=== PATIENT | female | born 1960 | race Caucasian/White ===

== ENCOUNTER 2017-03-29 12:46 | Inpatient (IN) ==
[2017-03-29] MEDS ORDERED: ONDANSETRON 4 MG/2 ML VIAL IV PRN (13:13)
[2017-03-29] MEDS ORDERED: traMADol 50 MG TABLET PO PRN (13:13)
[2017-03-29] MEDS ORDERED: ACETAMINOPHEN 325 MG TABLET PO PRN (13:13)
[2017-03-29] MEDS ORDERED: hydrALAZINE 20 MG/1 ML VIAL IV STA (13:17)
[2017-03-29] MEDS ORDERED: hydrALAZINE 20 MG/1 ML VIAL IV PRN (13:19)
[2017-03-29 14:40] LABS: Basophils % 0.2 % (0.0-0.8); Hemoglobin 13.5 GM/DL (12.0-16.0); Immature Granulocytes % 0.9 %; Immature Granulocytes Absolute 0.08 #; Lymphocytes # 0.6 10*3/uL (1.4-4.0); Lymphocytes % 6.8 % (21.3-54.2); Mean Corpuscular HGB Conc 32.1 GM/DL (32-36); Mean Corpuscular Hemoglobin 30 PG (27-34); Mean Corpuscular Volume 92.7 FL (87-102); Mean Platelet Volume 10.9 FL (9.6-12.0); Monocytes # 0.6 10*3/uL (0.11-0.8); Monocytes % 6.1 % (1.7-12.7); Neutrophils # 7.9 10*3/uL (1.4-7.4); Platelet Count 300 T/CUMM (130-400); Red Blood Count 4.53 MC/CUMM (3.8-5.5); Red Cell Distribution Width 13.5 % (9.3-17.3); White Blood Count 9.2 T/CUMM (4-12)
[2017-03-29 15:01] LABS: Bilirubin,Direct 0.2 MG/DL (0.0-0.20); Bilirubin,Total 1.4 MG/DL (0.2-1.0); Calcium 11.5 MG/DL (8.5-10.1)
[2017-03-29 15:02] LABS: Albumin 2.9 G/DL (3.4-5.0); Bilirubin,Indirect 1.2 MG/DL (0.0-1.0); Magnesium 2.1 MG/DL (1.8-2.4); Osmolality,Calculated 272.1 MOS/KG (273-304); Potassium 4.5 MMOL/L (3.5-5.1); Total Protein 6.9 G/DL (6.4-8.3)
[2017-03-29] MEDS: DEXTROSE 5% NACL 0.45% 1,000 ML IV SCH (16:01)
[2017-03-29] MEDS: LINEZOLID INJ 600 MG in PREMIX 1 EACH IV SCH (16:01)
[2017-03-29] MEDS ORDERED: ceFAZolin 1,000 MG in SYRINGE 1 EACH IV ONE (16:58)
[2017-03-29 18:42] LABS: Apearance,Urine CLEAR (Clear); Bilirubin,Urine Negative (Negative); Blood, Urine Negative (Negative); Glucose,Urine (UA) Negative (Negative); Ketones,Urine 20 mg/dL (Negative); Mucus,Urine Occasional /LPF (Occasional); Nitrite,Urine Negative (Negative); Protein,Urine Negative; RBC,Urine <1 /HPF (0-4); Squamous Epithelial Cell,Urine Occasional /HPF (0-10); Urine Color Yellow (Yellow); Urine Specific Gravity 1.016 (1.001-1.035); Urine Urobilinogen < 2.0 EU/DL (0.2-1.0); WBC,Urine <1 /HPF (0-6)
[2017-03-29 18:48] LABS: PT Patient Result 10.4 SECS
[2017-03-29] MEDS: METOPROLOL TARTRATE 25 MG TABLET PO SCH (20:44)
[2017-03-29] MEDS: DOCUSATE SODIUM 100 MG CAPSULE PO SCH (20:47)
[2017-03-30] MEDS: LINEZOLID INJ 600 MG in PREMIX 1 EACH IV SCH ×2 (02:56→16:09)
[2017-03-30] MEDS: ALPRAZolam 0.5 MG TABLET PO PRN ×2 (03:04→14:48)
[2017-03-30] MEDS ORDERED: ceFAZolin 1,000 MG in SYRINGE 1 EACH IV ONE (06:00)
[2017-03-30] MEDS: DEXTROSE 5% NACL 0.45% 1,000 ML IV SCH ×2 (07:59→16:09)
[2017-03-30] MEDS: METOPROLOL TARTRATE 25 MG TABLET PO SCH ×2 (09:34→21:43)
[2017-03-30] MEDS: PANTOPRAZOLE 40 MG TABLET PO SCH (09:37)
[2017-03-30] MEDS: DOCUSATE SODIUM 100 MG CAPSULE PO SCH ×3 (09:37→21:46)
[2017-03-30] MEDS ORDERED: ZOLEDRONIC ACID 4 MG in PREMIX 1 EACH IV ONE (10:00)
[2017-03-30] MEDS ORDERED: LIDOCAINE 2%/EPI 20 ML VIAL ONE (11:32)
[2017-03-30] MEDS ORDERED: ISOSULFAN BLUE 5 ML VIAL SUBCUT ONE (11:32)
[2017-03-30] MEDS ORDERED: BUPIVACAINE 0.25% 50 ML VIAL ONE (11:32)
[2017-03-30] MEDS ORDERED: BACITRACIN OINT 0.9 GM PACK TOP ONE (12:05)
[2017-03-30] MEDS ORDERED: CHLORHEXIDINE 4% SOLN 118 ML BOTTLE TOP ONE (12:26)
[2017-03-30] MEDS ORDERED: MORPHINE 10 MG/1 ML VIAL ONE (12:37)
[2017-03-30] MEDS ORDERED: ONDANSETRON 4 MG/2 ML VIAL ONE (12:38)
[2017-03-30] MEDS ORDERED: MORPHINE 2 MG/1 ML SYRINGE IV ONE ×2 (12:41→14:30)
[2017-03-30] MEDS ORDERED: MIDAZOLAM 2 MG/2 ML VIAL ONE (12:42)
[2017-03-30] MEDS ORDERED: KETAMINE 500 MG/10 ML VIAL ONE (12:42)
[2017-03-30] MEDS ORDERED: ONDANSETRON 4 MG/2 ML VIAL IV PRN (12:42)
[2017-03-30 16:20] LABS: Lymphocytes,Pleural Fluid 91 %; Monocytes,Pleural Fluid 8 %; Neutrophils,Pleural Fluid 1 %; RBC,Pleural Fluid 664 T/CUMM
[2017-03-30] MEDS: ceFAZolin 2,000 MG in PREMIX 1 EACH IV SCH (18:31)
[2017-03-30] MEDS: MORPHINE 2 MG/1 ML SYRINGE IV PRN (18:36)
[2017-03-31] MEDS: DEXTROSE 5% NACL 0.45% 1,000 ML IV SCH ×2 (00:29→20:37)
[2017-03-31] MEDS: MORPHINE 2 MG/1 ML SYRINGE IV PRN ×2 (01:26→09:46)
[2017-03-31 03:11] LABS: Basophils % 0.3 % (0.0-0.8); Eosinophils # 0.1 10*3/uL (0.0-0.87); Eosinophils % 0.8 % (0.00-10.9); Hemoglobin 11.6 GM/DL (12.0-16.0); Immature Granulocytes % 1.1 %; Immature Granulocytes Absolute 0.08 #; Lymphocytes # 0.7 10*3/uL (1.4-4.0); Lymphocytes % 10.1 % (21.3-54.2); Mean Corpuscular HGB Conc 31.4 GM/DL (32-36); Mean Corpuscular Hemoglobin 30 PG (27-34); Mean Corpuscular Volume 94.6 FL (87-102); Mean Platelet Volume 11.2 FL (9.6-12.0); Monocytes # 0.8 10*3/uL (0.11-0.8); Monocytes % 10.6 % (1.7-12.7); Neutrophils # 5.6 10*3/uL (1.4-7.4); Neutrophils % 77.1 % (38.7-73.9); Platelet Count 219 T/CUMM (130-400); Red Blood Count 3.91 MC/CUMM (3.8-5.5); Red Cell Distribution Width 13.5 % (9.3-17.3); White Blood Count 7.2 T/CUMM (4-12)
[2017-03-31] MEDS: ceFAZolin 2,000 MG in PREMIX 1 EACH IV SCH (03:11)
[2017-03-31 03:43] LABS: Albumin 2.2 G/DL (3.4-5.0); Osmolality,Calculated 273.8 MOS/KG (273-304); Potassium 4.1 MMOL/L (3.5-5.1); Total Protein 5.2 G/DL (6.4-8.3)
[2017-03-31] MEDS: LINEZOLID INJ 600 MG in PREMIX 1 EACH IV SCH ×2 (04:08→15:05)
[2017-03-31] MEDS: DOCUSATE SODIUM 100 MG CAPSULE PO SCH ×2 (09:45→22:00)
[2017-03-31] MEDS: METOPROLOL TARTRATE 25 MG TABLET PO SCH ×2 (09:45→22:00)
[2017-03-31] MEDS: PANTOPRAZOLE 40 MG TABLET PO SCH (09:46)
[2017-03-31] MEDS: BACITRACIN OINT 0.9 GM PACK TOP SCH (09:46)
[2017-03-31] MEDS ORDERED: LORazepam 2 MG/1 ML VIAL IV ONE (10:46)
[2017-03-31] MEDS: HYDROmorphone 2 MG/1 ML VIAL IV PRN ×2 (12:36→18:34)
[2017-03-31] MEDS: ENOXAPARIN 100 MG/ML SYRINGE SUBCUT SCH (12:49)
[2017-03-31] MEDS: MEROPENEM 1,000 MG in SYRINGE 1 EACH IV SCH ×2 (14:55→22:51)
[2017-04-01] MEDS: DEXTROSE 5% NACL 0.45% 1,000 ML IV SCH ×2 (01:31→15:03)
[2017-04-01] MEDS: LINEZOLID INJ 600 MG in PREMIX 1 EACH IV SCH ×2 (02:12→14:58)
[2017-04-01 06:22] LABS: Basophils % 0.3 % (0.0-0.8); Eosinophils % 0.6 % (0.00-10.9); Hematocrit 36.3 VOL% (35.7-47.0); Hemoglobin 11.5 GM/DL (12.0-16.0); Immature Granulocytes Absolute 0.06 #; Lymphocytes # 0.7 10*3/uL (1.4-4.0); Lymphocytes % 11.6 % (21.3-54.2); Mean Corpuscular HGB Conc 31.7 GM/DL (32-36); Mean Corpuscular Hemoglobin 30 PG (27-34); Mean Corpuscular Volume 93.1 FL (87-102); Mean Platelet Volume 11.2 FL (9.6-12.0); Monocytes # 0.6 10*3/uL (0.11-0.8); Monocytes % 10.3 % (1.7-12.7); Neutrophils # 4.7 10*3/uL (1.4-7.4); Neutrophils % 76.2 % (38.7-73.9); Platelet Count 172 T/CUMM (130-400); Red Cell Distribution Width 13.5 % (9.3-17.3); White Blood Count 6.2 T/CUMM (4-12)
[2017-04-01] MEDS: MEROPENEM 1,000 MG in SYRINGE 1 EACH IV SCH ×3 (06:33→22:54)
[2017-04-01 06:39] LABS: Calcium 8.5 MG/DL (8.5-10.1); Osmolality,Calculated 265.4 MOS/KG (273-304); Potassium 3.6 MMOL/L (3.5-5.1)
[2017-04-01] MEDS: HYDROmorphone 2 MG/1 ML VIAL IV PRN ×3 (07:04→22:00)
[2017-04-01] MEDS: METOPROLOL TARTRATE 25 MG TABLET PO SCH ×2 (09:41→21:52)
[2017-04-01] MEDS: BACITRACIN OINT 0.9 GM PACK TOP SCH (09:41)
[2017-04-01] MEDS: DOCUSATE SODIUM 100 MG CAPSULE PO SCH ×2 (09:42→22:11)
[2017-04-01] MEDS: PANTOPRAZOLE 40 MG TABLET PO SCH (09:42)
[2017-04-01] MEDS: ENOXAPARIN 100 MG/ML SYRINGE SUBCUT SCH (09:42)
[2017-04-02] MEDS: LINEZOLID INJ 600 MG in PREMIX 1 EACH IV SCH ×2 (03:13→14:10)
[2017-04-02 06:07] LABS: Basophils % 0.4 % (0.0-0.8); Eosinophils # 0.1 10*3/uL (0.0-0.87); Hematocrit 35.3 VOL% (35.7-47.0); Hemoglobin 11.2 GM/DL (12.0-16.0); Immature Granulocytes % 1.1 %; Immature Granulocytes Absolute 0.06 #; Lymphocytes % 17.9 % (21.3-54.2); Mean Corpuscular HGB Conc 31.7 GM/DL (32-36); Mean Corpuscular Hemoglobin 30 PG (27-34); Mean Corpuscular Volume 93.1 FL (87-102); Mean Platelet Volume 10.9 FL (9.6-12.0); Monocytes # 0.7 10*3/uL (0.11-0.8); Monocytes % 12.6 % (1.7-12.7); Neutrophils # 3.7 10*3/uL (1.4-7.4); Platelet Count 168 T/CUMM (130-400); Red Blood Count 3.79 MC/CUMM (3.8-5.5); Red Cell Distribution Width 13.3 % (9.3-17.3); White Blood Count 5.6 T/CUMM (4-12)
[2017-04-02] MEDS: MEROPENEM 1,000 MG in SYRINGE 1 EACH IV SCH ×3 (06:28→22:36)
[2017-04-02 06:32] LABS: Calcium 7.9 MG/DL (8.5-10.1); Magnesium 2.2 MG/DL (1.8-2.4); Potassium 3.6 MMOL/L (3.5-5.1)
[2017-04-02] MEDS ORDERED: diphenhydrAMINE 50 MG/1 ML VIAL IV ONE (08:30)
[2017-04-02] MEDS ORDERED: GRANISETRON 1 MG/1 ML VIAL IV SCH (08:30)
[2017-04-02] MEDS ORDERED: FAMOTIDINE 20 MG/2 ML VIAL IV ONE (08:30)
[2017-04-02] MEDS ORDERED: DEXAMETHASONE INJ 20 MG in SODIUM CHLORIDE 0.9% 50 ML IV ONE (08:30)
[2017-04-02] MEDS: PANTOPRAZOLE 40 MG TABLET PO SCH (09:25)
[2017-04-02] MEDS: DOCUSATE SODIUM 100 MG CAPSULE PO SCH ×3 (09:25→20:54)
[2017-04-02] MEDS: HYDROmorphone 2 MG/1 ML VIAL IV PRN ×3 (09:25→22:34)
[2017-04-02] MEDS: METOPROLOL TARTRATE 25 MG TABLET PO SCH ×2 (09:25→20:53)
[2017-04-02] MEDS: ENOXAPARIN 100 MG/ML SYRINGE SUBCUT SCH (09:27)
[2017-04-02] MEDS: DEXTROSE 5% NACL 0.45% 1,000 ML IV SCH ×2 (10:19→12:02)
[2017-04-02] MEDS ORDERED: LIDOCAINE 2% 20 ML VIAL MISC INJ ONE (10:43)
[2017-04-02] MEDS ORDERED: DOXYCYCLINE HYCLATE 100 MG CAPSULE PO SCH (11:00)
[2017-04-02] MEDS: BACITRACIN OINT 0.9 GM PACK TOP SCH (11:37)
[2017-04-03] MEDS: LINEZOLID INJ 600 MG in PREMIX 1 EACH IV SCH ×2 (03:08→16:59)
[2017-04-03] MEDS: DEXTROSE 5% NACL 0.45% 1,000 ML IV SCH ×2 (03:08→09:15)
[2017-04-03] MEDS: HYDROmorphone 2 MG/1 ML VIAL IV PRN ×3 (04:34→21:46)
[2017-04-03 06:21] LABS: Hematocrit 34.7 VOL% (35.7-47.0); Hemoglobin 11.3 GM/DL (12.0-16.0); Immature Granulocytes % 0.7 %; Immature Granulocytes Absolute 0.04 #; Lymphocytes # 0.7 10*3/uL (1.4-4.0); Lymphocytes % 11.9 % (21.3-54.2); Mean Corpuscular HGB Conc 32.6 GM/DL (32-36); Mean Corpuscular Hemoglobin 30 PG (27-34); Mean Corpuscular Volume 91.1 FL (87-102); Mean Platelet Volume 11.4 FL (9.6-12.0); Monocytes # 0.4 10*3/uL (0.11-0.8); Monocytes % 6.2 % (1.7-12.7); Neutrophils # 4.8 10*3/uL (1.4-7.4); Neutrophils % 81.2 % (38.7-73.9); Platelet Count 176 T/CUMM (130-400); Red Blood Count 3.81 MC/CUMM (3.8-5.5); Red Cell Distribution Width 13.4 % (9.3-17.3)
[2017-04-03] MEDS: MEROPENEM 1,000 MG in SYRINGE 1 EACH IV SCH ×3 (06:45→23:45)
[2017-04-03 06:56] LABS: Calcium 7.5 MG/DL (8.5-10.1); Magnesium 2.4 MG/DL (1.8-2.4); Osmolality,Calculated 275.7 MOS/KG (273-304); Potassium 3.7 MMOL/L (3.5-5.1)
[2017-04-03] MEDS ORDERED: MEPERIDINE 25 MG/1 ML VIAL IV ONE (09:18)
[2017-04-03] MEDS ORDERED: MEPERIDINE 50 MG/1 ML VIAL ONE (09:21)
[2017-04-03] MEDS: DOCUSATE SODIUM 100 MG CAPSULE PO SCH ×2 (10:22→21:14)
[2017-04-03] MEDS: ENOXAPARIN 100 MG/ML SYRINGE SUBCUT SCH (10:23)
[2017-04-03] MEDS: PANTOPRAZOLE 40 MG TABLET PO SCH (10:23)
[2017-04-03] MEDS: BACITRACIN OINT 0.9 GM PACK TOP SCH (10:23)
[2017-04-03] MEDS: METOPROLOL TARTRATE 25 MG TABLET PO SCH ×2 (10:23→21:10)
[2017-04-03] MEDS ORDERED: diphenhydrAMINE CAP 25 MG CAPSULE PO PRN (21:26)
[2017-04-03] MEDS ORDERED: LOPERAMIDE 2 MG CAPSULE PO PRN (21:27)
[2017-04-04] MEDS: DEXTROSE 5% NACL 0.45% 1,000 ML IV SCH ×2 (00:07→03:54)
[2017-04-04] MEDS: LINEZOLID INJ 600 MG in PREMIX 1 EACH IV SCH (03:54)
[2017-04-04 05:15] LABS: Basophils % 0.3 % (0.0-0.8); Eosinophils # 0.1 10*3/uL (0.0-0.87); Eosinophils % 1.2 % (0.00-10.9); Hematocrit 35.7 VOL% (35.7-47.0); Hemoglobin 11.6 GM/DL (12.0-16.0); Immature Granulocytes % 0.7 %; Immature Granulocytes Absolute 0.04 #; Lymphocytes # 1.4 10*3/uL (1.4-4.0); Lymphocytes % 23.4 % (21.3-54.2); Mean Corpuscular HGB Conc 32.5 GM/DL (32-36); Mean Corpuscular Hemoglobin 30 PG (27-34); Mean Corpuscular Volume 91.5 FL (87-102); Mean Platelet Volume 11.5 FL (9.6-12.0); Monocytes # 0.2 10*3/uL (0.11-0.8); Monocytes % 3.9 % (1.7-12.7); Neutrophils # 4.2 10*3/uL (1.4-7.4); Neutrophils % 70.5 % (38.7-73.9); Platelet Count 200 T/CUMM (130-400); Red Cell Distribution Width 13.4 % (9.3-17.3); White Blood Count 5.9 T/CUMM (4-12)
[2017-04-04 05:43] LABS: Calcium 7.1 MG/DL (8.5-10.1); Magnesium 2.3 MG/DL (1.8-2.4); Osmolality,Calculated 276.7 MOS/KG (273-304); Potassium 3.6 MMOL/L (3.5-5.1)
[2017-04-04] MEDS: MEROPENEM 1,000 MG in SYRINGE 1 EACH IV SCH (07:40)
[2017-04-04] MEDS: PANTOPRAZOLE 40 MG TABLET PO SCH (09:26)
[2017-04-04] MEDS: METOPROLOL TARTRATE 25 MG TABLET PO SCH ×2 (09:26→21:14)
[2017-04-04] MEDS: DIPHENOXYLATE/ATROPINE 2.5-0.025 MG TABLET PO SCH ×2 (09:26→21:14)
[2017-04-04] MEDS: HYDROmorphone 2 MG/1 ML VIAL IV PRN ×3 (09:26→21:11)
[2017-04-04] MEDS: BACITRACIN OINT 0.9 GM PACK TOP SCH (09:27)
[2017-04-04] MEDS: ENOXAPARIN 100 MG/ML SYRINGE SUBCUT SCH (10:59)
[2017-04-05] MEDS: DEXTROSE 5% NACL 0.45% 1,000 ML IV SCH ×2 (01:01→15:36)
[2017-04-05 07:05] LABS: Basophils % 0.2 % (0.0-0.8); Eosinophils # 0.1 10*3/uL (0.0-0.87); Eosinophils % 1.8 % (0.00-10.9); Hematocrit 34.5 VOL% (35.7-47.0); Hemoglobin 11.3 GM/DL (12.0-16.0); Immature Granulocytes % 0.7 %; Immature Granulocytes Absolute 0.04 #; Lymphocytes # 0.9 10*3/uL (1.4-4.0); Lymphocytes % 16.2 % (21.3-54.2); Mean Corpuscular HGB Conc 32.8 GM/DL (32-36); Mean Corpuscular Hemoglobin 30 PG (27-34); Mean Corpuscular Volume 90.6 FL (87-102); Mean Platelet Volume 10.9 FL (9.6-12.0); Monocytes # 0.2 10*3/uL (0.11-0.8); Monocytes % 3.5 % (1.7-12.7); Neutrophils # 4.3 10*3/uL (1.4-7.4); Neutrophils % 77.6 % (38.7-73.9); Platelet Count 173 T/CUMM (130-400); Red Blood Count 3.81 MC/CUMM (3.8-5.5); Red Cell Distribution Width 13.4 % (9.3-17.3); White Blood Count 5.5 T/CUMM (4-12)
[2017-04-05 07:36] LABS: Calcium 6.7 MG/DL (8.5-10.1); Magnesium 2.5 MG/DL (1.8-2.4); Osmolality,Calculated 279.4 MOS/KG (273-304); Potassium 3.6 MMOL/L (3.5-5.1)
[2017-04-05] MEDS: oxyCODONE/ACETAMINOPHEN 5-325 MG TABLET PO PRN ×2 (08:19→16:15)
[2017-04-05] MEDS: METOPROLOL TARTRATE 25 MG TABLET PO SCH ×2 (08:20→22:24)
[2017-04-05] MEDS: ALPRAZolam 0.5 MG TABLET PO PRN (08:20)
[2017-04-05] MEDS: PANTOPRAZOLE 40 MG TABLET PO SCH (08:20)
[2017-04-05] MEDS: DIPHENOXYLATE/ATROPINE 2.5-0.025 MG TABLET PO SCH ×2 (08:20→22:24)
[2017-04-05] MEDS: HYDROmorphone 2 MG/1 ML VIAL IV PRN (10:07)
[2017-04-05] MEDS: ENOXAPARIN 100 MG/ML SYRINGE SUBCUT SCH (11:49)
[2017-04-05] MEDS: BACITRACIN OINT 0.9 GM PACK TOP SCH (11:49)
[2017-04-06] MEDS: MORPHINE 2 MG/1 ML SYRINGE IV PRN (02:05)
[2017-04-06] MEDS: ALPRAZolam 0.5 MG TABLET PO PRN (02:08)
[2017-04-06 07:11] LABS: Basophils % 0.2 % (0.0-0.8); Eosinophils # 0.1 10*3/uL (0.0-0.87); Eosinophils % 2.7 % (0.00-10.9); Hematocrit 34.4 VOL% (35.7-47.0); Hemoglobin 11.2 GM/DL (12.0-16.0); Immature Granulocytes % 0.7 %; Immature Granulocytes Absolute 0.03 #; Lymphocytes # 0.9 10*3/uL (1.4-4.0); Lymphocytes % 19.9 % (21.3-54.2); Mean Corpuscular HGB Conc 32.6 GM/DL (32-36); Mean Corpuscular Hemoglobin 30 PG (27-34); Mean Corpuscular Volume 90.8 FL (87-102); Mean Platelet Volume 10.9 FL (9.6-12.0); Monocytes # 0.2 10*3/uL (0.11-0.8); Monocytes % 3.3 % (1.7-12.7); Neutrophils # 3.3 10*3/uL (1.4-7.4); Neutrophils % 73.2 % (38.7-73.9); Platelet Count 185 T/CUMM (130-400); Red Blood Count 3.79 MC/CUMM (3.8-5.5); Red Cell Distribution Width 13.5 % (9.3-17.3); White Blood Count 4.5 T/CUMM (4-12)
[2017-04-06 07:35] LABS: Calcium 6.7 MG/DL (8.5-10.1); Magnesium 2.5 MG/DL (1.8-2.4); Potassium 3.8 MMOL/L (3.5-5.1)
[2017-04-06] MEDS ORDERED: ceFAZolin 2,000 MG in PREMIX 1 EACH IV ONE (07:57)
[2017-04-06] MEDS: DEXTROSE 5% NACL 0.45% 1,000 ML IV SCH (10:17)
[2017-04-06] MEDS ORDERED: HEPARIN 5,000 UNIT/1 ML VIAL ONE (11:25)
[2017-04-06] MEDS ORDERED: BUPIVACAINE 0.25% 50 ML VIAL ONE (11:25)
[2017-04-06] MEDS ORDERED: LIDOCAINE 1% 5 ML VIAL ONE (11:55)
[2017-04-06] MEDS ORDERED: ceFAZolin 1,000 MG VIAL ONE (13:10)
[2017-04-06] MEDS ORDERED: LIDOCAINE 2%/EPI 20 ML VIAL ONE (13:21)
[2017-04-06] MEDS ORDERED: TISSUE ADHESIVE 1 EACH APPLICATOR TOP ONE (14:12)
[2017-04-06] MEDS ORDERED: oxyCODONE/ACETAMINOPHEN 5-325 MG TABLET PO PRN (14:19)
[2017-04-06] MEDS ORDERED: MIDAZOLAM 2 MG/2 ML VIAL ONE (14:40)
[2017-04-06] MEDS ORDERED: KETAMINE 500 MG/10 ML VIAL ONE (14:40)
[2017-04-06] MEDS ORDERED: KETOROLAC 30 MG/1 ML VIAL ONE (14:41)
[2017-04-06] MEDS ORDERED: fentaNYL 100 MCG/2 ML VIAL ONE (14:41)
[2017-04-06] MEDS ORDERED: PROPOFOL 200 MG/20 ML VIAL IV ONE ×2 (14:41→14:42)
[2017-04-06] MEDS ORDERED: ONDANSETRON 4 MG/2 ML VIAL ONE (14:41)
[2017-04-06] MEDS ORDERED: DEXAMETHASONE 10 MG/1 ML VIAL ONE (14:41)
[2017-04-06] MEDS ORDERED: SODIUM CHLORIDE 0.9% 1,000 ML IV ONE (14:42)
[2017-04-06 16:57] VITALS: BP 114/67
[2017-04-06] MEDS: BACITRACIN OINT 0.9 GM PACK TOP SCH (18:00)
[2017-04-06] MEDS: DIPHENOXYLATE/ATROPINE 2.5-0.025 MG TABLET PO SCH (18:17)
[2017-04-06] MEDS: ENOXAPARIN 100 MG/ML SYRINGE SUBCUT SCH (18:18)
[2017-04-06] MEDS: PANTOPRAZOLE 40 MG TABLET PO SCH (18:18)
[2017-04-06] MEDS: METOPROLOL TARTRATE 25 MG TABLET PO SCH (18:18)
[2017-04-06] MEDS ORDERED: ceFAZolin 2,000 MG in PREMIX 1 EACH IV SCH (20:21)
== END 2017-04-06 18:20 | disposition home health service (06) | DRG 579 ==
LOC: N.4E 13:33
PROVIDERS: ADMIT Family Medicine; ATTEND Family Medicine

== ENCOUNTER 2018-08-06 15:57 | Inpatient (IN) ==
[2018-08-06] MEDS ORDERED: fentaNYL 100 MCG/2 ML VIAL IV STA (16:43)
[2018-08-06] MEDS ORDERED: ONDANSETRON 4 MG/2 ML VIAL IV STA (16:43)
[2018-08-06 17:21] LABS: Basophils % 0.1 % (0.0-0.8); Eosinophils # 0.2 10*3/uL (0.0-0.87); Eosinophils % 2.4 % (0.00-10.9); Hematocrit 39.3 VOL% (35.7-47.0); Hemoglobin 12.5 GM/DL (12.0-16.0); Immature Granulocytes % 0.7 %; Immature Granulocytes Absolute 0.05 #; Lymphocytes # 1.3 10*3/uL (1.4-4.0); Lymphocytes % 18.9 % (21.3-54.2); Mean Corpuscular HGB Conc 31.8 GM/DL (32-36); Mean Corpuscular Volume 95.4 FL (87-102); Mean Platelet Volume 10.3 FL (9.6-12.0); Monocytes % 7.1 % (1.7-12.7); Neutrophils % 70.8 % (38.7-73.9); Platelet Count 166 T/CUMM (130-400); Red Blood Count 4.12 MC/CUMM (3.8-5.5); Red Cell Distribution Width 14.6 % (9.3-17.3)
[2018-08-06 17:35] LABS: PT Patient Result 11.3 SECS; Partial Thromboplastin Time 35.2 SECS (0-40)
[2018-08-06 17:43] LABS: Albumin 3.3 G/DL (3.4-5.0); Bilirubin,Total 0.7 MG/DL (0.2-1.0); Calcium 9.9 MG/DL (8.5-10.1); Osmolality,Calculated 283.3 MOS/KG (273-304); Total Protein 6.9 G/DL (6.4-8.3)
[2018-08-06] MEDS ORDERED: DEXAMETHASONE 10 MG/1 ML VIAL IV STA (17:53)
[2018-08-06] MEDS ORDERED: fentaNYL 100 MCG/2 ML VIAL IV PRN (18:47)
[2018-08-06] MEDS: ONDANSETRON 4 MG/2 ML VIAL IV SCH (23:47)
[2018-08-06] MEDS: DEXAMETHASONE 10 MG/1 ML VIAL IV SCH (23:51)
[2018-08-07] MEDS: ONDANSETRON 4 MG/2 ML VIAL IV SCH ×5 (03:16→21:11)
[2018-08-07] MEDS: DEXAMETHASONE 10 MG/1 ML VIAL IV SCH (06:18)
[2018-08-07] MEDS ORDERED: BENZONATATE 100 MG CAPSULE PO PRN (07:36)
[2018-08-07] MEDS ORDERED: LIDOCAINE/PRILOCAINE CREAM 5 GM TUBE TOP PRN (07:36)
[2018-08-07] MEDS ORDERED: diphenhydrAMINE CAP 25 MG CAPSULE PO PRN (07:36)
[2018-08-07] MEDS ORDERED: DEXTROMETHORPHAN ER 6 MG/ML 90 ML/BOTTLE PO PRN (07:36)
[2018-08-07] MEDS ORDERED: LOPERAMIDE 2 MG CAPSULE PO PRN (07:36)
[2018-08-07] MEDS: METOPROLOL TARTRATE 25 MG TABLET PO SCH ×2 (08:50→21:11)
[2018-08-07] MEDS: CALCIUM (CARBONATE)/VITAMIN D 600 MG-400 UNIT TABLET PO SCH ×2 (08:50→21:11)
[2018-08-07] MEDS: POTASSIUM GLUCONATE 500 MG TABLET PO SCH ×2 (08:50→21:11)
[2018-08-07] MEDS: CETIRIZINE 10 MG TABLET PO SCH (08:50)
[2018-08-07] MEDS: FUROSEMIDE 40 MG TABLET PO SCH ×2 (08:51→21:11)
[2018-08-07] MEDS: CHOLESTYRAMINE 4 GM PACK PO SCH ×2 (08:51→16:58)
[2018-08-07] MEDS: PANTOPRAZOLE 40 MG TABLET PO SCH (08:51)
[2018-08-07] MEDS: ALPRAZolam 0.5 MG TABLET PO PRN ×2 (08:57→23:42)
[2018-08-07] MEDS ORDERED: RIVAROXABAN 10 MG TABLET PO SCH (09:00)
[2018-08-07] MEDS ORDERED: ALBUTEROL 2.5 MG/3 ML NEB RESP TX PRN (13:00)
[2018-08-07] MEDS: DEXAMETHASONE 4 MG/1 ML VIAL IV SCH ×2 (14:34→21:11)
[2018-08-08] MEDS: ONDANSETRON 4 MG/2 ML VIAL IV SCH ×2 (00:44→05:19)
[2018-08-08] MEDS: DEXAMETHASONE 4 MG/1 ML VIAL IV SCH ×2 (04:53→05:27)
[2018-08-08] MEDS ORDERED: DEXAMETHASONE 4 MG TABLET PO SCH (09:00)
[2018-08-08] MEDS: CALCIUM (CARBONATE)/VITAMIN D 600 MG-400 UNIT TABLET PO SCH (11:30)
[2018-08-08] MEDS: CHOLESTYRAMINE 4 GM PACK PO SCH (11:30)
[2018-08-08] MEDS: METOPROLOL TARTRATE 25 MG TABLET PO SCH (11:30)
[2018-08-08] MEDS: FUROSEMIDE 40 MG TABLET PO SCH (11:31)
[2018-08-08] MEDS: CETIRIZINE 10 MG TABLET PO SCH (11:31)
[2018-08-08] MEDS: POTASSIUM GLUCONATE 500 MG TABLET PO SCH (11:31)
[2018-08-08] MEDS: PANTOPRAZOLE 40 MG TABLET PO SCH (11:31)
[2018-08-08 14:41] VITALS: BP 169/75
[2018-08-08] MEDS ORDERED: HEPARIN LOCK FLUSH 500 UNIT/5 ML SYRINGE IV PRN (15:42)
== END 2018-08-08 16:25 | disposition home or self-care (01) | DRG 54 ==
LOC: N.ED 15:57 → N.EDINP 18:46 → N.4E 19:47
PROVIDERS: ADMIT Family Medicine; ATTEND Family Medicine